=== PATIENT | female | born 1960 | race Two or more races ===

== ENCOUNTER 2020-11-05 10:34 | Outpatient (CLI) | payer OTHER | END 2020-11-05 23:59 | disposition home or self-care (01) | LOC: LAB 10:34 | PROVIDERS: ATTEND Specialist | DX: Z01.812 Encounter for preprocedural laboratory examination (principal); Z20.822 Contact with and (suspected) exposure to COVID-19 | CPT/HCPCS: C9803; U0003 ==

== ENCOUNTER 2020-11-12 05:08 | Inpatient (IN) | payer OTHER ==
[~2020-11-12] VITALS: Ht 163.8 cm; Wt 90.7 kg
[2020-11-12] MEDS ORDERED: ANESTHESIA TRAY IN PYXIS 1 EA TRAY MC ONE (05:50)
[2020-11-12] MEDS ORDERED: BUPIVACAINE 0.5 % PF 150 MG/30 ML VIAL ONE (05:51)
[2020-11-12] MEDS ORDERED: BACITRACIN 50000 UNITS/VIAL ONE (05:51)
[2020-11-12] MEDS ORDERED: MIDAZOLAM HCL 2 MG/2ML VIAL ONE (06:15)
[2020-11-12] MEDS ORDERED: HYDROMORPHONE INJ 2 MG/ML DISP.SYRIN ONE ×4 (06:16→09:28)
[2020-11-12] MEDS ORDERED: FENTANYL PF 250MCG/5ML AMPUL ONE (06:16)
[2020-11-12] MEDS ORDERED: BUPIVACAINE 0.25% 75 MG/30 ML VIAL ONE ×2 (06:17→09:04)
[2020-11-12] MEDS ORDERED: FENTANYL PF 100MCG/2ML AMPUL ONE (06:17)
[2020-11-12] MEDS ORDERED: CLINDAMYCIN 900 MG/6 ML VIAL ONE (06:17)
[2020-11-12] MEDS ORDERED: TRANEXAMIC ACID 3,000 MG in SODIUM CHLORIDE IRRIG SOLUTION 70 ML IR ONE (06:30)
[2020-11-12] MEDS ORDERED: LABETALOL HCL IV 100MG VIAL ONE (07:22)
[2020-11-12] MEDS ORDERED: KETOROLAC TROMETHAMINE INJ 30 MG/ML VIAL ONE (09:39)
[2020-11-12] MEDS ORDERED: KETAMINE HCL (500MG/10ML) 50 MG/ML VIAL ONE (09:40)
[2020-11-12] MEDS ORDERED: hydrALAZINE HCL IV 20 MG VIAL ONE (09:58)
[2020-11-12 11:00] VITALS: BP 167/94
[2020-11-12] MEDS ORDERED: [UNRECOGNIZED DRUG - CODE] PO (11:52)
[2020-11-12] MEDS ORDERED: LISI30TA4 PO (11:52)
[2020-11-12] MEDS ORDERED: TEMA30CA5 PO (11:52)
[2020-11-12] MEDS ORDERED: [UNRECOGNIZED DRUG - CODE] PO (11:52)
[2020-11-12] MEDS ORDERED: OXYB5TAB16 PO (11:52)
[2020-11-12] MEDS ORDERED: ALPR1TAB7 PO (11:52)
[2020-11-12] MEDS ORDERED: CELE200C PO (11:52)
[2020-11-12] MEDS ORDERED: PREG50CA PO (11:52)
[2020-11-12] MEDS ORDERED: ORLI120C23 PO (11:52)
[2020-11-12] MEDS ORDERED: VALA500T PO (11:52)
[2020-11-12] MEDS ORDERED: VILA40TA PO (11:52)
[2020-11-12] MEDS ORDERED: HYDR4TAB4 PO (11:52)
[2020-11-12] MEDS ORDERED: DIPH50CA38 PO (11:52)
[2020-11-12] MEDS ORDERED: PREG100C PO (11:52)
[2020-11-12] MEDS ORDERED: LURA40TA PO (11:52)
[2020-11-12] MEDS ORDERED: TRAZ-257 PO (11:52)
[2020-11-12] MEDS ORDERED: FLUT12AE3 INH (11:52)
[2020-11-12] MEDS ORDERED: ALBU18HF2 IH (11:52)
[2020-11-12] MEDS ORDERED: ESOM40CA PO (11:52)
[2020-11-12] MEDS ORDERED: LEVO5TAB29 PO (11:52)
[2020-11-12] MEDS ORDERED: BIOT5000 PO (11:52)
[2020-11-12] MEDS ORDERED: CYCL5TAB PO (11:52)
[2020-11-12] MEDS ORDERED: AMLO-212 PO (11:52)
[2020-11-12] MEDS ORDERED: ASCO-352 PO (11:52)
[2020-11-12] MEDS ORDERED: ONDA4TAB5 PO (11:52)
[2020-11-12] MEDS ORDERED: NALO12.52 PO (11:52)
[2020-11-12] MEDS ORDERED: ARMO150T2 PO (11:52)
[2020-11-12] MEDS ORDERED: MONT10TA22 PO (11:52)
[2020-11-12] MEDS ORDERED: POTA2TAB18 PO (11:55)
--- NOTE | 2020-11-12 12:00 | NUR ---
PATIENT RECEIVED IN BED O2 2L NASAL CANNULA. PER OR STAFF, ABLE TO DC 2L AFTER 1 HOUR BACK TO ROOM AIR. ORDERS RECEIVED FROM MD JACINTO. MD EID CONSULTED PATIENT, ORDERS DILAUDID CUSHION INSTALLER. PATIENT IS FULL CODE ALERT AND ORIENTED X 3. PATIENT EXPERIENCING 10/10 PAIN IN LOWER BACK/RIGHT KNEE. MULTIPLE PAIN MEDS GIVEN BY OR STAFF. RIGHT KNEE IMMOBILIZER IN PLACE, ALL SAFETY MEASURES IN PLACE. WILL CONTINUE TO MONITOR
[2020-11-12] MEDS ORDERED: SENNOSIDES 8.6 MG TABLET PO PRN (12:30)
[2020-11-12] MEDS ORDERED: MAG HYDROX/AL HYDROX/SIMETH 30 ML UDC PO PRN (12:30)
[2020-11-12] MEDS ORDERED: diphenhydrAMINE HCL 25 MG CAPSULE PO PRN (12:30)
[2020-11-12] MEDS ORDERED: BISACODYL SUPP (10 MG) 10 MG/SUPP.RECT SUPP.RECT RC PRN (12:30)
[2020-11-12] MEDS ORDERED: MENTHOL/CETYLPYRD (CEPACOL) 1 LOZ LOZENGE MM PRN (12:30)
[2020-11-12] MEDS ORDERED: NALOXONE HCL 0.4 MG/ML AMPUL IV PRN (12:30)
[2020-11-12] MEDS ORDERED: MAGNESIUM HYDROXIDE 30 ML UDC PO PRN (12:30)
[2020-11-12] MEDS ORDERED: TRAZODONE 50 MG TABLET PO PRN (12:30)
[2020-11-12 12:38] LABS: HEMOGLOBIN 13.9 g/dL (11.5-14.8)
--- NOTE | 2020-11-12 13:00 | NUR ---
UNABLE TO TAKE PHOTOS OF POST-OP RIGHT KNEE. ORDERS RECEIVED FOR MD ONLY TO CHANGE DRESSING. ENDORSED TO ONCOMING RN
[2020-11-12] MEDS ORDERED: Z GUARD REMEDY 2 OZ OINT TP PRN (14:00)
[2020-11-12] MEDS ORDERED: ALPRAZOLAM 1 MG TABLET PO PRN (14:00)
[2020-11-12] MEDS ORDERED: ZOLPIDEM TARTRATE 5 MG TABLET PO PRN (14:00)
[2020-11-12] MEDS ORDERED: ALBUTEROL FS 2.5 MG/0.5 ML VIAL.NEB NEB PRN (14:30)
--- NOTE | 2020-11-12 14:40 | NUR ---
MS RN NOTES PATIENT RECEIVED IN BED, WILL CONTINUE TO MONITOR PATIENT.
--- NOTE | 2020-11-12 14:50 | NUR ---
ALL NEEDS REPORTED TO ONCOMING RN FOR PRECIOUS
[2020-11-12] MEDS: CLINDAMYCIN 600 MG in IV D5W 50 ML IV SCH ×2 (15:24→22:10)
[2020-11-12] MEDS ORDERED: KEY,NONCONTROL,TO KEEP IN PYXI 1 EA MC ONE (15:39)
[2020-11-12 16:00] VITALS: BP 157/83
[2020-11-12] MEDS: HYDROMORPHONE MDV 30 MG in IV NS 0.9% 15 ML, PCA TOTAL VOLUME 1 BAG IV PRN ×3 (16:10)
--- NOTE | 2020-11-12 16:28 | NUR ---
SS consult: SS consult received for D/C planning. Per EMR, patient has surgical procedure completed today. SW called & spoke to the pt.'s nurse, who stated the pt. is sleeping and resting after surgery. Per nurse, the pt. comes from home with . Per nurse, there are no discharge orders at this time. SW will follow up at a later time.
[2020-11-12] MEDS: DOCUSATE SODIUM 100 MG CAPSULE PO SCH (16:57)
[2020-11-12] MEDS: HYDROMORPHONE HCL 2 MG TABLET PO PRN (16:58)
[2020-11-12] MEDS ORDERED: LYSINE HCL 500 MG PO SCH (17:00)
[2020-11-12] MEDS ORDERED: CELECOXIB 200 MG PO SCH (17:00)
[2020-11-12] MEDS: ASCORBIC ACID 500 MG TABLET PO SCH (17:00)
[2020-11-12] MEDS: PREGABALIN 100 MG CAPSULE PO SCH (17:02)
[2020-11-12] MEDS: IV D5/0.45 NACL 1,000 ML IV PRN (17:29)
[2020-11-12] MEDS ORDERED: ZINC PO SCH (18:00)
[2020-11-12] MEDS ORDERED: CALCIUM PO SCH (18:00)
[2020-11-12] MEDS ORDERED: [UNRECOGNIZED DRUG - OTHER] PO SCH (18:00)
[2020-11-12] MEDS ORDERED: Medication Not On Formulary EA (Levocetirizine Dihydrochloride (Xyzal) 5 MG) PO SCH (18:00)
[2020-11-12] MEDS ORDERED: MAGNESIUM PO SCH (18:00)
--- NOTE | 2020-11-12 18:22 | NUR ---
MS RN NOTES PATIENT IN BED SLEEPING EASILY AWAKEN BY NAME. ALERT AND ORIENTED X 4. ON ROOM AIR WITH NO SIGNS OF RESPIRATORY DISTRESS NOTED, WITH EVEN NON-LABORED BREATHING. IV ACCESS INTACT AND PATENT, CURRENTLY INFUSING 125mL/HR OF D5 1/2 NORMAL SALINE ORDERED. COAL HAULER PUMP IN PLACE AND EDUCATED THE PATIENT ON HOW TO USE. SKIN KEPT CLEAN, WARM, AND DRY TO TOUCH. DRESSING INTACT ON RIGHT KNEE. MET ALL OF PATIENT'S NEEDS. SAFETY PRECAUTIONS IMPLEMENTED WITH BED LOCKED, BILATERAL SIDE RAILS UP, BED ALARM ON, AND CALL LIGHT WITHIN EASY REACH OF THE PATIENT. WILL ENDORSE PLAN OF CARE TO UPCOMING RN.
--- NOTE | 2020-11-12 19:05 | NUR ---
MS RN OPENING NOTES: RECEIVED PATIENT IN BED, AWAKE, A/O X4. NO S/S OF DISTRESS NOTED. CALL LIGHT WITHIN REACH. BED IN LOWEST AND LOCKED POSITION. WITH HIMS MANAGER DILAUDID WITH THE SETTINGS OF DEMAND=0.4, 12 MINS INTERVAL, AND 8MG LOCKED OUT. WITH RIGHT KNEE IMMOBILIZER ON. DRESSING IS CLEAN,DRY AND INTACT, CMS WNL. PATIENT ABLE TO MOVE HER RIGHT TOES. VOIDED THRU BEDPAN, CLEAR YELLOW URINE OUTPUT. BEDREST. PATIENT IS ON ROOM AIR.
[2020-11-12 20:00] VITALS: BP 158/98
[2020-11-12] MEDS: PANTOPRAZOLE 40 MG TABLET.DR PO SCH (22:10)
--- NOTE | 2020-11-12 22:41 | NUR ---
INFORMED DR BLACKMAN RE: PATIENT'S HR FROM 103 AND GOES UP TO 113.
[2020-11-13] VITALS: BP 162/87
[2020-11-13] MEDS: CLONIDINE HCL 0.1 MG TABLET PO PRN ×2 (00:50→12:37)
[2020-11-13 04:00] VITALS: BP 160/87
[2020-11-13] MEDS: IV D5/0.45 NACL 1,000 ML IV PRN ×2 (04:01→07:59)
--- NOTE | 2020-11-13 05:48 | NUR ---
MS RN CLOSING NOTES: PATIENT IN BED, AWAKE, A/O X4. NO S/S OF DISTRESS NOTED. CALL LIGHT WITHIN REACH. BED ALARM ON. BED IN LOWEST AND LOCKED POSITION. VOIDING GOOD. WITH SODA WORKER DILAUDID. NO COMPLAIN OF PAIN. RESTED THROUGHOUT THE NIGHT. AFEBRILE. POST-OP DRESSING IS CLEAN,DRY AND INTACT WITH KNEE IMMOBILIZER ON AT ALL TIMES.
[2020-11-13] MEDS: ASCORBIC ACID 500 MG TABLET PO SCH ×3 (06:36→16:57)
[2020-11-13] MEDS: CLINDAMYCIN 600 MG in IV D5W 50 ML IV SCH (06:36)
[2020-11-13] MEDS: HYDROMORPHONE HCL 2 MG TABLET PO PRN (06:38)
[2020-11-13 06:39] LABS: BASOPHILS % (AUTO) 0.3 % (0.0-2.0); EOSINOPHILS % (AUTO) 0.7 % (0.0-6.0); HEMATOCRIT 38 % (33-45); HEMOGLOBIN 12.4 g/dL (11.5-14.8); LYMPHOCYTES # (AUTO) 0.6 /CMM (0.8-4.8); LYMPHOCYTES % (AUTO) 5.5 % (20.0-44.0); MEAN CORPUSCULAR HGB CONC 33 g/dl (31.0-36.0); MEAN CORPUSCULAR VOLUME 90 fL (82-100); MONOCYTES % (AUTO) 8.9 % (2.0-12.0); NEUTROPHILS # (AUTO) 9.7 /CMM (1.8-8.9); NEUTROPHILS % (AUTO) 84.6 % (43.0-81.0); PLATELET COUNT (AUTO) 300 /CMM (150-450); RED BLOOD CELL COUNT(AUTO) 4.19 MIL/uL (4.0-5.2); WHITE BLOOD COUNT (AUTO) 11.5 K/uL (4.3-11.0)
[2020-11-13 08:07] VITALS: BP 171/99
[2020-11-13 08:10] LABS: CALCIUM, SERUM 8.7 mg/dL (8.5-10.1); CREATININE 0.9 mg/dL (0.6-1.3); POTASSIUM 3.5 mmol/L (3.5-5.1)
[2020-11-13 08:34] LABS: MAGNESIUM 1.9 mg/dL (1.8-2.4)
[2020-11-13] MEDS: DOCUSATE SODIUM 100 MG CAPSULE PO SCH ×2 (08:36→17:00)
[2020-11-13] MEDS: PREGABALIN 25 MG CAPSULE PO SCH (08:36)
[2020-11-13] MEDS: ASPIRIN 325 MG TABLET PO SCH (08:36)
[2020-11-13] MEDS: MONTELUKAST SODIUM (10MG) 10 MG TABLET PO SCH (08:37)
[2020-11-13] MEDS: AMLODIPINE BESYLATE 5 MG TABLET PO SCH (08:37)
[2020-11-13] MEDS: LISINOPRIL (10MG) 10 MG TABLET PO SCH (08:37)
[2020-11-13] MEDS: OXYBUTYNIN CHLORIDE 5 MG TABLET PO SCH (08:42)
--- NOTE | 2020-11-13 08:54 | NUR ---
MS RN OPENING NOTE PT RECEIVED IN BED, SLEEPING BUT AROUSABLE AND RESPONSIVE. PT IS A/O X 4 AND ABLE TO MAKE NEEDS KNOWN. PT IS ON ROOM AIR WITH NO S/SX OF SOB OR RESPIRATORY DISTRESS NOTED. PT'S IV ACCESS IS ON THE LEFT AC G#20, PATENT, INTACT AND FLUSHING WELL, RUNNING D5 1/2 NS AT 125 ML/HR WITH NO S/SX INFILTRATION, IRRITATION OR INFECTION NOTED. PT'S ELECTRIC CUTTER OPERATOR PUMP IS IN PLACE, BUT PT HAS NO C/O PAIN AT THIS TIME. SAFETY MEASURES IN PLACE: BED IN LOWEST POSITION AND LOCKED WITH BOTH UPPER SIDE RAILS UP X 2. CALL LIGHT PLACED WITHIN REACH. WILL CONTINUE TO MONITOR.
[2020-11-13] MEDS ORDERED: ARMODAFINIL 150 MG PO SCH (09:00)
[2020-11-13] MEDS ORDERED: NALOXEGOL OXALATE 12.5 MG PO SCH (09:00)
[2020-11-13] MEDS: FLUTICASONE/VILANTEROL 1 EACH BLST.W.DEV IH SCH (09:06)
[2020-11-13] MEDS ORDERED: DEXTROSE 50%-WATER 50 ML DISP.SYRIN IV PRN (10:00)
[2020-11-13] MEDS: BLOOD SUGAR DIAGNOSTIC 1 EACH STRIP IN SCH ×3 (11:53→22:03)
[2020-11-13] MEDS: INSULIN REGULAR, HUMAN 100 UNIT/ML 3 ML VIAL SQ PRN ×3 (11:54→22:03)
[2020-11-13] MEDS: CYCLOBENZAPRINE 10 MG TABLET PO PRN (12:38)
--- NOTE | 2020-11-13 12:45 | NUR ---
MS RN NOTE PT C/O MUSCLE SPASMS. ADMINISTERED FLEXERIL PRN PER PTS REQUEST. WILL CONTINUE TO MONITOR.
--- NOTE | 2020-11-13 12:45 | NUR ---
MS RN NOTE PT'S BP REACHED 171/103. MD MADE AWARE. CLONIDINE PRN GIVEN TO PT. WILL CONTINUE TO MONITOR.
[2020-11-13] MEDS: HYDROMORPHONE MDV 30 MG in IV NS 0.9% 15 ML, PCA TOTAL VOLUME 1 BAG IV PRN ×3 (15:10)
[2020-11-13 16:20] VITALS: BP 160/93
[2020-11-13] MEDS: PREGABALIN 100 MG CAPSULE PO SCH (17:12)
[2020-11-13] MEDS: METFORMIN 500 MG TABLET PO SCH (17:12)
--- NOTE | 2020-11-13 18:32 | NUR ---
MS RN CLOSING NOTE PT REMAINS IN BED, SLEEPING BUT AROUSABLE AND RESPONSIVE. PT IS A/O X 4 WITH NO C/O PAIN. PT IS ON ROOM AIR WITH NO S/SX OF SOB OR RESPIRATORY DISTRESS NOTED. PT'S IV ACCESS IS ON THE LEFT AC G#20, PATENT, INTACT AND FLUSHING WELL, RUNNING D5 1/2 NS AT 125 ML/HR WITH NO S/SX INFILTRATION, IRRITATION OR INFECTION NOTED. PT'S TEMPLATE FITTER PUMP IS IN PLACE. SAFETY MEASURES MAINTAINED: BED IN LOWEST, LOCKED POSITION WITH BOTH UPPER SIDE RAILS UP X 2. CALL LIGHT PLACED WITHIN REACH. WILL ENDORSE TO FORENSIC COMPUTER EXAMINER NURSE.
--- NOTE | 2020-11-13 19:15 | NUR ---
MS RN OPENING NOTES: RECEIVED PATIENT IN BED, AWAKE, A/O X4. NO S/S OF DISTRESS NOTED. CALL LIGHT WITHIN REACH. BED ALARM ON. BED IN LOWEST AND LOCKED POSITION. WITH RIGHT KNEE IMMOBILIZER ON, WITH GOOD CMS. NO COMPLAIN OF PAIN AT THIS TIME. WITH SALES TECHNICIAN HOME THEATER DILAUDID 0.4 MG DEMAND, 12 MINS INTERVAL, AND 8MG IN 4 HOURS LIMIT, WITH REMAINING VOLUME OF 29.2 ML.
[2020-11-13 20:40] VITALS: BP 155/88
[2020-11-13] MEDS: PANTOPRAZOLE 40 MG TABLET.DR PO SCH (21:26)
[2020-11-14 00:44] VITALS: BP 170/98
[2020-11-14] MEDS: CLONIDINE HCL 0.1 MG TABLET PO PRN (00:48)
[2020-11-14] MEDS: ALPRAZOLAM 1 MG TABLET PO PRN ×2 (00:56→13:28)
[2020-11-14] MEDS: IV D5/0.45 NACL 1,000 ML IV PRN ×2 (00:56→10:56)
--- NOTE | 2020-11-14 05:53 | NUR ---
MS RN CLOSING NOTES: PATIENT IN BED, ASLEEP,EASILY AROUSABLE. NO S/S OF DISTRESS NOTED. CALL LIGHT WITHIN REACH. BED ALARM ON. BED IN LOWEST AND LOCKED POSITION. WITH SPACE OPERATIONS OFFICER DILAUDID WITH THE SAME SETTING, WITH THE REMAINING VOLUME OF 25.2 AT THIS MOMENT. PATIENT RESTED THROUGHOUT THE NIGHT. WITH RIGHT KNEE IMMOBILIZER ON AT ALL TIMES. POST-OP DRESSING CLEAN, DRY AND INTACT. RIGHT FOOT GOOD CMS.
[2020-11-14] MEDS: ONDANSETRON HCL/PF 4 MG/2 ML VIAL IVP PRN (06:26)
[2020-11-14 06:27] LABS: BASOPHILS % (AUTO) 0.1 % (0.0-2.0); HEMATOCRIT 34 % (33-45); HEMOGLOBIN 11.3 g/dL (11.5-14.8); LYMPHOCYTES # (AUTO) 0.8 /CMM (0.8-4.8); LYMPHOCYTES % (AUTO) 6.8 % (20.0-44.0); MEAN CORPUSCULAR HGB CONC 34 g/dl (31.0-36.0); MEAN CORPUSCULAR VOLUME 89 fL (82-100); MONOCYTES % (AUTO) 8.3 % (2.0-12.0); NEUTROPHILS # (AUTO) 10.1 /CMM (1.8-8.9); NEUTROPHILS % (AUTO) 80.8 % (43.0-81.0); PLATELET COUNT (AUTO) 262 /CMM (150-450); WHITE BLOOD COUNT (AUTO) 12.5 K/uL (4.3-11.0)
[2020-11-14] MEDS: ASCORBIC ACID 500 MG TABLET PO SCH ×2 (06:45→16:25)
[2020-11-14] MEDS: INSULIN REGULAR, HUMAN 100 UNIT/ML 3 ML VIAL SQ PRN ×3 (06:48→22:04)
[2020-11-14 07:05] LABS: CALCIUM, SERUM 8.2 mg/dL (8.5-10.1); CREATININE 0.8 mg/dL (0.6-1.3); MAGNESIUM 1.7 mg/dL (1.8-2.4); PHOSPHORUS 2.7 mg/dL (2.5-4.9); POTASSIUM 3.6 mmol/L (3.5-5.1)
--- NOTE | 2020-11-14 07:40 | NUR ---
RN MS NOTES PT IN BED, ASLEEP, EASILY AROUSABLE, ALERT AND ORIENTED, NO COMPLAINT AT THIS TIME, RESPIRATIONS NORMAL, CALL LIGHT WITHIN REACH, IV FLUIDS INFUSING, KEPT WARM AND COMFORTABLE IN BED.
--- NOTE | 2020-11-14 07:43 | NUR ---
RN MS NOTES RECEIVED ORDER FROM DR. EID TO D/C OUTDOOR ADVENTURE GUIDES DILAUDID ON NEXT RENEWAL, NOTED.
[2020-11-14] MEDS: BLOOD SUGAR DIAGNOSTIC 1 EACH STRIP IN SCH ×4 (07:53→21:58)
[2020-11-14 08:00] VITALS: BP 147/79
[2020-11-14] MEDS: METFORMIN 500 MG TABLET PO SCH ×2 (08:39→16:23)
[2020-11-14] MEDS: FLUTICASONE/VILANTEROL 1 EACH BLST.W.DEV IH SCH (08:39)
[2020-11-14] MEDS: DOCUSATE SODIUM 100 MG CAPSULE PO SCH ×2 (08:40→16:25)
[2020-11-14] MEDS: ASPIRIN 325 MG TABLET PO SCH (08:40)
[2020-11-14] MEDS: LISINOPRIL (10MG) 10 MG TABLET PO SCH (08:40)
[2020-11-14] MEDS: AMLODIPINE BESYLATE 5 MG TABLET PO SCH (08:41)
[2020-11-14] MEDS: MONTELUKAST SODIUM (10MG) 10 MG TABLET PO SCH (08:41)
[2020-11-14] MEDS: PREGABALIN 25 MG CAPSULE PO SCH (08:41)
[2020-11-14] MEDS: OXYBUTYNIN CHLORIDE 5 MG TABLET PO SCH (08:54)
[2020-11-14] MEDS: Magnesium 1GM/D5W 100ML PREMIX 100 ML IV SCH ×2 (09:56→10:56)
[2020-11-14 16:00] VITALS: BP 135/70
[2020-11-14] MEDS: ARIPIPRAZOLE 5 MG TABLET PO SCH (16:25)
[2020-11-14] MEDS: PREGABALIN 100 MG CAPSULE PO SCH (17:14)
--- NOTE | 2020-11-14 19:00 | NUR ---
RN MS NOTES PT IN BED, ASLEEP, EASY TO AROUSE, ALERT AND ORIENTED, NO COMPLAINT OF PAIN AT THIS TIME, RESPIRATIONS NORMAL, IV FLUIDS INFUSING WELL, CALL LIGHT WITHIN REACH, SEEN BY MICAH VILLAFANA FOR ORTHO, CLEARED PT FOR D/C, SEEN ALSO BY DR. BAILON VIA [facility] FOR PSYCH EVAL, PT WAS PLEASANT AND COMPLIANT, ORDERS GIVEN, PM CARE PROVIDED, ALL NEEDS ATTENDED.
--- NOTE | 2020-11-14 19:30 | NUR ---
PATIENT AWAKE AND A/O X4. IN BED, WATCHING TV. PATIENT REQUESTING TO BE CLEANED D/T BOWEL MOVEMENT IN BED. SAFETY MEASURES IN PLACE. BED IN LOW POSITION AND LOCKED. CALL LIGHT WITHIN REACH. WILL CONTINUE TO MONITOR. Addendum: 11/15/20 at 0218 by MARIE MENDOZA RN ORIGINAL NOTE DOCUMENTED ON WRONG PATIENT. PATIENT AWAKE AND A/OX4. SLEEPING IN BED. AROUSES TO NAME. RIGHT LEG PROPPED UP ON PILLOW AND WRAPPED. NO REPORTS OF PAIN AND PATIENT IS NOT IN DISTRESS AT THIS TIME. SAFETY MEASURES IN PLACE. BED IN LOW POSITION AND LOCKED WITH SIDE RAILS UP X 2. CALL LIGHT WITHIN PATIENT'S REACH. WILL CONTINUE TO MONITOR.
[2020-11-14 20:00] VITALS: BP 135/59
[2020-11-14] MEDS: ACETAMINOPHEN 325 MG TABLET PO PRN (21:55)
[2020-11-14] MEDS: MIRTAZAPINE 15 MG TABLET PO SCH (21:55)
[2020-11-14] MEDS: PANTOPRAZOLE 40 MG TABLET.DR PO SCH (21:55)
[2020-11-14] MEDS: QUETIAPINE FUMARATE 25 MG TABLET PO SCH (21:55)
--- NOTE | 2020-11-15 | NUR ---
PATIENT SLEEPING IN BED. WILL CONTINUE TO MONITOR.
--- NOTE | 2020-11-15 04:00 | NUR ---
PATIENT REMAINS ASLEEP AT THIS TIME. CALL RICHARDSON WITHIN REACH. WILL CONTINUE TO MONITOR.
[2020-11-15] MEDS: HYDROMORPHONE HCL 2 MG TABLET PO PRN ×4 (05:02→20:30)
[2020-11-15 06:45] LABS: BASOPHILS # (AUTO) 0.1 /CMM (0.0-0.2); BASOPHILS % (AUTO) 0.8 % (0.0-2.0); EOSINOPHILS % (AUTO) 6.8 % (0.0-6.0); HEMATOCRIT 31 % (33-45); HEMOGLOBIN 10.7 g/dL (11.5-14.8); LYMPHOCYTES # (AUTO) 0.8 /CMM (0.8-4.8); LYMPHOCYTES % (AUTO) 8.6 % (20.0-44.0); MEAN CORPUSCULAR HGB CONC 34 g/dl (31.0-36.0); MEAN CORPUSCULAR VOLUME 88 fL (82-100); MONOCYTES # (AUTO) 0.8 /CMM (0.1-1.30); MONOCYTES % (AUTO) 8.6 % (2.0-12.0); NEUTROPHILS # (AUTO) 7.2 /CMM (1.8-8.9); NEUTROPHILS % (AUTO) 75.2 % (43.0-81.0); PLATELET COUNT (AUTO) 263 /CMM (150-450); RED BLOOD CELL COUNT(AUTO) 3.59 MIL/uL (4.0-5.2); WHITE BLOOD COUNT (AUTO) 9.5 K/uL (4.3-11.0)
[2020-11-15] MEDS: ASCORBIC ACID 500 MG TABLET PO SCH ×2 (07:00→17:00)
[2020-11-15 07:07] LABS: CALCIUM, SERUM 7.8 mg/dL (8.5-10.1); CREATININE 0.9 mg/dL (0.6-1.3); MAGNESIUM 1.9 mg/dL (1.8-2.4); PHOSPHORUS 3.7 mg/dL (2.5-4.9)
[2020-11-15] MEDS: BLOOD SUGAR DIAGNOSTIC 1 EACH STRIP IN SCH ×4 (07:16→22:18)
[2020-11-15] MEDS: INSULIN REGULAR, HUMAN 100 UNIT/ML 3 ML VIAL SQ PRN ×4 (07:17→22:25)
--- NOTE | 2020-11-15 07:55 | NUR ---
MS RN OPENING NOTE PT RECEIVED IN BED, RESTING COMFORTABLY WITH NO C/O PAIN AT THIS TIME. PT IS A/O X 4 AND ABLE TO MAKE NEEDS KNOWN. PT IS ON ROOM AIR WITH NO S/SX OF RESPIRATORY DISTRESS OR SOB. PT HAS AN IV ACCESS ON LEFT AC G#20, PATENT, INTACT AND FLUSHING WELL WITH NO S/SX INFILTRATION, INFECTION OR IRRITATION. SAFETY MEASURES IN PLACE: BED IN LOWEST POSITION AND LOCKED WITH BOTH UPPER SIDE RAILS UP X 2. CALL LIGHT PLACED WITHIN REACH. WILL CONTINUE TO MONITOR.
[2020-11-15 08:00] VITALS: BP 105/64
[2020-11-15] MEDS: FLUTICASONE/VILANTEROL 1 EACH BLST.W.DEV IH SCH (08:09)
[2020-11-15] MEDS: ARIPIPRAZOLE 5 MG TABLET PO SCH (08:09)
[2020-11-15] MEDS: ASPIRIN 325 MG TABLET PO SCH (08:09)
[2020-11-15] MEDS: OXYBUTYNIN CHLORIDE 5 MG TABLET PO SCH (08:10)
[2020-11-15] MEDS: DOCUSATE SODIUM 100 MG CAPSULE PO SCH ×2 (08:10→17:00)
[2020-11-15] MEDS: METFORMIN 500 MG TABLET PO SCH ×2 (08:10→17:08)
[2020-11-15] MEDS: PREGABALIN 25 MG CAPSULE PO SCH (08:11)
[2020-11-15] MEDS: MONTELUKAST SODIUM (10MG) 10 MG TABLET PO SCH (08:12)
[2020-11-15] MEDS: AMLODIPINE BESYLATE 5 MG TABLET PO SCH (08:14)
[2020-11-15] MEDS: LISINOPRIL (10MG) 10 MG TABLET PO SCH (08:15)
[2020-11-15] MEDS: CYCLOBENZAPRINE 10 MG TABLET PO PRN ×2 (08:18→16:31)
--- NOTE | 2020-11-15 08:20 | NUR ---
MS RN NOTE PT C/P PAIN ON RIGHT KNEE RATED 6/10. DILAUDID 2 MG TAB [id number] PRN ADMINISTERED SPECIFICALLY PER PT'S REQUEST. WILL CONTINUE TO MONITOR.
--- NOTE | 2020-11-15 08:22 | NUR ---
MS RN NOTE PT C/O MUSCLE SPASMS. FLEXERIL 10MG TAB [id number] PRN ADMINISTERED SPECIFICALLY PER PT'S REQUEST. WILL CONTINUE TO MONITOR.
[2020-11-15] MEDS ORDERED: ARIP5TAB10 PO (09:35)
[2020-11-15] MEDS ORDERED: METF-440 PO (09:35)
[2020-11-15] MEDS ORDERED: MIRT-121 PO (09:35)
[2020-11-15] MEDS ORDERED: QUET25TA PO (09:35)
[2020-11-15] MEDS ORDERED: PANT40TA2 PO (09:35)
[2020-11-15] MEDS ORDERED: DOCU-270 PO (09:35)
[2020-11-15] MEDS ORDERED: SENN-261 PO (09:35)
[2020-11-15] MEDS ORDERED: DIPH25CA49 PO (09:35)
[2020-11-15] MEDS ORDERED: CLON0.1T PO (09:35)
[2020-11-15] MEDS ORDERED: BISA10SU11 RC (09:35)
[2020-11-15] MEDS ORDERED: HYDR2TAB4 PO (09:35)
[2020-11-15] MEDS ORDERED: INSU100V28 SQ (09:35)
[2020-11-15] MEDS ORDERED: CYCL10TA9 PO (09:35)
[2020-11-15] MEDS ORDERED: Menthol/Cetylpyrd (Cepacol) MM (09:35)
[2020-11-15] MEDS ORDERED: TRAZ-252 PO (09:35)
[2020-11-15] MEDS ORDERED: PREG100C PO (09:35)
[2020-11-15] MEDS ORDERED: PREG25CA PO (09:35)
[2020-11-15] MEDS: HYDROMORPHONE 1 MG/1 ML DISP.SYRIN IV PRN ×2 (09:55→16:32)
--- NOTE | 2020-11-15 10:02 | NUR ---
MS RN NOTE PT SEEN BY PT, ABLE TO AMBULATE IN ROOM. AFTER PT, PT C/O PAIN 10/10 ON RIGHT KNEE. DILAUDID 1MG IVP PRN GIVEN SPECIFICALLY PER PT'S REQUEST. WILL CONTINUE TO MONITOR.
[2020-11-15 16:00] VITALS: BP 156/76
--- NOTE | 2020-11-15 16:43 | NUR ---
MS RN NOTE PT C/O SHARP PAIN RATED 8/10 ON RIGHT KNEE. ADMINISTERED DILAUDID 1MG/ML IVP Q3H PRN PER PT'S REQUEST. WILL CONTINUE TO MONITOR.
--- NOTE | 2020-11-15 16:44 | NUR ---
MS RN NOTE PT C/O MUSCLE SPASMS. FLEXERIL 10MG TAB Q8H PRN ADMINISTERED PER PT'S REQUEST. WILL CONTINUE TO MONITOR.
[2020-11-15] MEDS: PREGABALIN 100 MG CAPSULE PO SCH (17:08)
--- NOTE | 2020-11-15 18:49 | NUR ---
MS RN CLOSING NOTE PT REMAINS IN BED, RESTING COMFORTABLY WITH NO C/O PAIN AT THIS TIME. PT IS A/O X 4 AND ABLE TO MAKE NEEDS KNOWN. PT IS ON ROOM AIR WITH NO S/SX OF RESPIRATORY DISTRESS OR SOB, BUT HAS 2LPM OXYGEN VIA NASAL CANNULA PRN. PT HAS AN IV ACCESS ON LEFT AC G#20, PATENT, INTACT AND FLUSHING WELL WITH NO S/SX INFILTRATION, INFECTION OR IRRITATION. SAFETY MEASURES MAINTAINED: BED IN LOWEST, LOCKED POSITION WITH BOTH UPPER SIDE RAILS UP X 2. CALL LIGHT PLACED WITHIN REACH. WILL ENDORSE TO SIGN MANUFACTURER NURSE.
[2020-11-15 20:00] VITALS: BP 119/77
--- NOTE | 2020-11-15 20:07 | NUR ---
ms reggie initial notes received report from am nurse Garrett and seen pt in bed on semi fowlers position with side rails x2 up . She's awake and alert watching TV at this time . S/p right total knee arthroplasty . Dressing dry and intact with knee immobilizer . heplock only on her left AC gauge 20 patent and intact. Kept her warm and comfortable at all times. no signs of any distress noted. Place call light at reach. will continue monitoring.
--- NOTE | 2020-11-15 20:30 | NUR ---
ms reggie notes c/o right knee pain , Dilaudid tablet given as ordered. reposition pt for comfort. will continue monitoring.
[2020-11-15] MEDS: MIRTAZAPINE 15 MG TABLET PO SCH (22:18)
[2020-11-15] MEDS: PANTOPRAZOLE 40 MG TABLET.DR PO SCH (22:18)
[2020-11-15] MEDS: QUETIAPINE FUMARATE 25 MG TABLET PO SCH (22:18)
[2020-11-15] MEDS: ALPRAZOLAM 1 MG TABLET PO PRN (22:20)
--- NOTE | 2020-11-15 22:25 | NUR ---
MS VICENTE NOTES XANAX GIVEN PO PER PT REQUESTED WELL HER ROUTINE MEDS. BLOOD SUGAR 121, NO INSULIN DUE AT THIS TIME. NO SIGNS OF HYPO GLYCEMIA NOTED. REPOSITION PT FOR COMFORT. WILL CONTINUE MONITORING. WILL RE- ASSESS LATER.
--- NOTE | 2020-11-16 | NUR ---
MS COMMERCIAL CENTER MANAGER NOTES PT SLEEPING COMFORTABLY IN BED WITHOUT ANY DISTRESS OR ANY DISCOMFORT NOTED. WILL CONTINUE MONITORING.
[2020-11-16] MEDS: HYDROMORPHONE HCL 2 MG TABLET PO PRN (03:27)
[2020-11-16] MEDS: INSULIN REGULAR, HUMAN 100 UNIT/ML 3 ML VIAL SQ PRN ×2 (06:08→11:21)
[2020-11-16 06:28] LABS: CALCIUM, SERUM 8.6 mg/dL (8.5-10.1); MAGNESIUM 1.8 mg/dL (1.8-2.4); PHOSPHORUS 3.7 mg/dL (2.5-4.9); POTASSIUM 3.8 mmol/L (3.5-5.1)
[2020-11-16 06:41] LABS: BASOPHILS # (AUTO) 0.1 /CMM (0.0-0.2); BASOPHILS % (AUTO) 0.8 % (0.0-2.0); EOSINOPHILS % (AUTO) 6.4 % (0.0-6.0); HEMATOCRIT 32 % (33-45); HEMOGLOBIN 10.7 g/dL (11.5-14.8); LYMPHOCYTES # (AUTO) 1.3 /CMM (0.8-4.8); MEAN CORPUSCULAR HGB CONC 34 g/dl (31.0-36.0); MEAN CORPUSCULAR VOLUME 90 fL (82-100); MONOCYTES # (AUTO) 1.1 /CMM (0.1-1.30); MONOCYTES % (AUTO) 11.8 % (2.0-12.0); NEUTROPHILS # (AUTO) 6.6 /CMM (1.8-8.9); PLATELET COUNT (AUTO) 309 /CMM (150-450); RED BLOOD CELL COUNT(AUTO) 3.52 MIL/uL (4.0-5.2); WHITE BLOOD COUNT (AUTO) 9.7 K/uL (4.3-11.0)
--- NOTE | 2020-11-16 06:57 | NUR ---
ms addiction medicine physician closing notes pt back to sleep after morning care done. all due meds given and all needs met. blood sugar checked done 205, 4 units of insulin given jesi SQ as ordered. no signs of hyper glycemia noted. kept her warm and comfortable at all times. will endorse to am nurse for continuity of care.
[2020-11-16] MEDS: ASCORBIC ACID 500 MG TABLET PO SCH (07:00)
[2020-11-16] MEDS: BLOOD SUGAR DIAGNOSTIC 1 EACH STRIP IN SCH ×2 (07:49→11:21)
--- NOTE | 2020-11-16 07:50 | NUR ---
MS RN OPENING NOTE PT RECEIVED IN BED, RESTING COMFORTABLY, IN NO ACUTE DISTRESS AT THIS TIME. PT IS A/O X 4, VERBAL AND ABLE TO MAKE NEEDS KNOWN. PT HAS NO C/O PAIN AT THIS TIME. PT IS ON ROOM AIR WITH NO S/SX OF RESPIRATORY DISTRESS OR SOB. PT HAS AN IV ACCESS ON LEFT AC G#20, PATENT, INTACT AND FLUSHING WELL WITH NO S/SX INFILTRATION, INFECTION OR INFLAMMATION. SAFETY MEASURES IN PLACE: BED IN LOWEST POSITION AND LOCKED WITH BOTH UPPER SIDE RAILS UP X 2. CALL LIGHT PLACED WITHIN REACH. WILL CONTINUE TO MONITOR.
[2020-11-16] MEDS: DOCUSATE SODIUM 100 MG CAPSULE PO SCH (08:05)
[2020-11-16 08:31] VITALS: BP 148/74
[2020-11-16] MEDS: FLUTICASONE/VILANTEROL 1 EACH BLST.W.DEV IH SCH (08:39)
[2020-11-16] MEDS: ARIPIPRAZOLE 5 MG TABLET PO SCH (08:40)
[2020-11-16] MEDS: OXYBUTYNIN CHLORIDE 5 MG TABLET PO SCH (08:40)
[2020-11-16] MEDS: ASPIRIN 325 MG TABLET PO SCH (08:40)
[2020-11-16] MEDS: PREGABALIN 25 MG CAPSULE PO SCH (08:40)
[2020-11-16] MEDS: METFORMIN 500 MG TABLET PO SCH (08:40)
[2020-11-16 08:41] VITALS: BP 148/74
[2020-11-16] MEDS: LISINOPRIL (10MG) 10 MG TABLET PO SCH (08:41)
[2020-11-16] MEDS: AMLODIPINE BESYLATE 5 MG TABLET PO SCH (08:41)
[2020-11-16] MEDS: MONTELUKAST SODIUM (10MG) 10 MG TABLET PO SCH (08:42)
[2020-11-16] MEDS: ACETAMINOPHEN 325 MG TABLET PO PRN (10:12)
--- NOTE | 2020-11-16 10:15 | NUR ---
MS RN NOTE\ PT C/O PAIN 11/14. ADMINISTERED TYLENOL 650MG PO Q6H PRN PER PT REQUEST. WILL CONTINUE TO MONITOR.
[2020-11-16] MEDS: ONDANSETRON HCL/PF 4 MG/2 ML VIAL IVP PRN (11:01)
--- NOTE | 2020-11-16 11:09 | NUR ---
MS RN NOTE PT C/O NAUSEA. ADMINISTERED ZOFRAN 4MG/2ML IVP PRN PER PT REQUEST. WILL CONTINUE TO MONITOR.
--- NOTE | 2020-11-16 14:50 | NUR ---
MS RN NOTE PT CLEARED FOR DISCHARGE TODAY. TO BE DISCHARGED TO [facility]. CALLED [facility] AT , GAVE REPORT TO MIKEY ORELLANA. CALLED [employer], JULIET, FRIEND, AT WITH NO ANSWER, LEFT VOICEMAIL.
--- NOTE | 2020-11-16 15:18 | NUR ---
MS TELEGRAPH LINEMAN NOTE PT CLEARED FOR DISCHARGE. DISCHARGE PAPERWORK, PRESCRIPTION AND RESOURCES GIVEN TO PT. NAME ARM BAND/ID BAND REMOVED. IV ACCESS REMOVED WITH NO S/SX OF BLEEDING NOTED. DISCHARGE INSTRUCTIONS AND EDUCATION PROVIDED TO PT WHO VERBALIZED UNDERSTANDING. PT BELONGINGS LIST ACCOUNTED FOR, SIGNED AND GIVEN TO PT. REPORT GIVEN TO [facility] FOR TRANSPORT. CAMARGO JUN GIVEN REPORT AND AWARE OF TRANSPORT. PT LEFT UNIT AT 15:15 VIA GURNEY ACCOMPANIED BY [facility]. CHARGE NURSE AWARE OF DISCHARGE.
== END 2020-11-16 17:51 | DRG 470 ==
LOC: DS 05:08 → MED 05:09
PROVIDERS: ADMIT Nurse Practitioner Family; ATTEND Registered Nurse
PROC: 0SRC0J9 Replacement of Right Knee Joint with Synthetic Substitute, Cemented, Open Approach (ICD-10-PCS; principal; 2020-11-12)
DX: M17.11 Unilateral primary osteoarthritis, right knee (principal); F31.30 Bipolar disorder, current episode depressed, mild or moderate severity, unspecified; I10 Essential (primary) hypertension; F41.9 Anxiety disorder, unspecified; G89.4 Chronic pain syndrome; G47.419 Narcolepsy without cataplexy; E78.00 Pure hypercholesterolemia, unspecified; K21.9 Gastro-esophageal reflux disease without esophagitis; J45.909 Unspecified asthma, uncomplicated; J44.9 Chronic obstructive pulmonary disease, unspecified; G47.00 Insomnia, unspecified; K59.03 Drug induced constipation; I45.10 Unspecified right bundle-branch block; E66.9 Obesity, unspecified; Z68.33 Body mass index [BMI] 33.0-33.9, adult; D72.829 Elevated white blood cell count, unspecified; E88.81 Metabolic syndrome and other insulin resistance; E66.01 Morbid (severe) obesity due to excess calories; F17.210 Nicotine dependence, cigarettes, uncomplicated; H40.9 Unspecified glaucoma; Z83.3 Family history of diabetes mellitus; Z79.891 Long term (current) use of opiate analgesic; E11.9 Type 2 diabetes mellitus without complications; Z71.6 Tobacco abuse counseling; Z79.84 Long term (current) use of oral hypoglycemic drugs; Z71.3 Dietary counseling and surveillance; T40.2X5A Adverse effect of other opioids, initial encounter; Y92.89 Other specified places as the place of occurrence of the external cause; F13.20 Sedative, hypnotic or anxiolytic dependence, uncomplicated
CPT/HCPCS: 36415; 80048-TC; 80061-TC; 82962-TC; 83735-TC; 84100-TC; 85025-TC; 85027-TC; 87081-TC; 88305-TC; 88311-TC; 93971-TC; 97112-TC; 97116-TC; 97530-TC; A4217; A6403; C1713; C1776; G0378; J0360; J0702; J1100; J1170; J1815; J1885; J2250; J2405; J3010; J3475; J3490; J7030; J7050; J7060; L1830